=== PATIENT | female | born 1935 | race Hispanic/Latino ===

== ENCOUNTER 2018-11-07 19:10 | Inpatient (IN) | payer MEDICARE ==
[2018-11-07] MEDS ORDERED: GLUCAGEN ONE (19:15)
[2018-11-07] MEDS ORDERED: D50W (25GM) Syringe IV ONE ×2 (19:16→19:22)
[2018-11-07] MEDS ORDERED: NORMODYNE IV ONE (19:23)
--- NOTE | 2018-11-07 19:28 | Emergency Department Report ---
ED Altered Mental Status HPI - General Stated Complaint: LOW BLOODSUGAR Time Seen by Provider: 11/07/18 19:22 Source: EMS - History of Present Illness Initial Comments: Patient is a 83 years old female with history of diabetes. Patient brought to the emergency room via EMS after patient was found unresponsive on her wheelchair. EMS stated that her blood sugar was less than 20. EMS unable to get IV access. When arrived to the emergency room patient is obtunded, gasping for breath. IV access immediately obtained and patient given head to both D50. Patient started waking up. Airway intact. Patient blood pressure extremely high 280/180. Repeated blood pressure went down to 170/148. Patient received labetalol. MD Complaint: altered mental status, decreased responsiveness -: This afternoon Severity: severe - Related Data Previous Rx's Medication Instructions Recorded Last Taken Type Morphine ER [Ms Contin ER] 15 mg PO Q8HR PRN #20 tablet 03/05/15 Unknown Rx Allergies Allergy/AdvReac Type Severity Reaction Status Date / Time codeine Allergy Unknown Verified 03/05/15 19:35 ED Review of Systems ROS: Stated complaint: LOW BLOODSUGAR Other details as noted in HPI Comment: Unobtainable due to pts medical conditions ED Past Medical Hx - Past Medical History Hx Diabetes: Yes Additional medical history: A-fib - Surgical History Additional Surgical History: L.Knee replacement - Social History Smoking Status: Never Smoker Substance Use Type: None - Medications Home Medications: Home Medications Medication Instructions Recorded Confirmed Last Taken Type Morphine ER [Ms Contin ER] 15 mg PO Q8HR PRN #20 tablet 03/05/15 Unknown Rx ED Physical Exam - General Limitations: Altered Mental Status General appearance: obtunded - Head Head exam: Present: atraumatic, normocephalic, normal inspection - Eye Eye exam: Present: normal appearance - ENT ENT exam: Present: normal exam, normal orophraynx, mucous membranes moist - Neck Neck exam: Present: normal inspection, full ROM. Absent: tenderness, meningismus, lymphadenopathy, thyromegaly - Respiratory Respiratory exam: Present: normal lung sounds bilaterally. Absent: respiratory distress, wheezes, rales, rhonchi, stridor, chest wall tenderness, accessory muscle use, decreased breath sounds, prolonged expiratory - Cardiovascular Cardiovascular Exam: Present: regular rate, normal rhythm, normal heart sounds - GI/Abdominal GI/Abdominal exam: Present: soft, normal bowel sounds. Absent: distended, tenderness, guarding, rebound, rigid, organomegaly, mass, bruit, pulsatile mass, hernia - Extremities Exam Extremities exam: Present: normal inspection, full ROM, normal capillary refill. Absent: pedal edema, calf tenderness - Back Exam Back exam: Present: normal inspection, full ROM. Absent: tenderness, CVA tenderness (R), CVA tenderness (L), muscle spasm, paraspinal tenderness, vertebral tenderness - Neurological Exam Neurological exam: Present: alert, oriented X3, CN II-XII intact, normal gait, reflexes normal - Skin Skin exam: Present: warm, intact, normal color ED Course Vital Signs 11/07/18 11/07/18 11/07/18 19:12 19:16 19:27 Temperature 93.1 F L Pulse Rate 83 89 90 Respiratory 17 16 Rate Blood Pressure 145/129 163/59 Blood Pressure [Right] O2 Sat by Pulse 87 87 Oximetry 11/07/18 11/07/18 11/07/18 19:30 19:33 19:40 Temperature 93.1 F L Pulse Rate 83 88 Respiratory 17 14 16 Rate Blood Pressure 189/111 Blood Pressure 182/111 [Right] O2 Sat by Pulse 98 Oximetry 11/07/18 11/07/18 11/07/18 20:23 20:31 20:32 Temperature Pulse Rate 77 73 82 Respiratory 13 15 Rate Blood Pressure 182/119 189/94 182/111 Blood Pressure [Right] O2 Sat by Pulse 90 Oximetry - Reevaluation(s) Reevaluation #1: 11/07/18 19:39 Family arrived. Daughter stated that her mom fell this afternoon landed on the coffee table on the left side and she's been hurting since then. Patient does have some bruises in the lower anterior abdomen. Reevaluation #2: 11/07/18 22:46 Patient evaluated by me multiple times. Patient stated that she is feeling better after the fentanyl. - Lab Data Result diagrams: 11/07/18 19:40 11/07/18 19:40 Lab Results 11/07/18 11/07/18 11/07/18 Range/Units 19:30 19:30 19:40 WBC 14.1 H (4.5-11.0) K/mm3 RBC 5.05 H (3.65-5.03) M/mm3 Hgb 10.4 (10.1-14.3) gm/dl Hct 34.2 (30.3-42.9) % MCV 68 L (79-97) fl MCH 21 L (28-32) pg MCHC 31 (30-34) % RDW 18.1 H (13.2-15.2) % Plt Count 541 H (140-440) K/mm3 Add Manual Diff Complete Total Counted 100 Seg Neutrophils % Director Call Seg Neuts % (Manual) 90.0 H (40.0-70.0) % Band Neutrophils % 0 % Lymphocytes % (Manual) 6.0 L (13.4-35.0) % Reactive Lymphs % (Man) 0 % Monocytes % (Manual) 4.0 (0.0-7.3) % Eosinophils % (Manual) 0 (0.0-4.3) % Basophils % (Manual) 0 (0.0-1.8) % Metamyelocytes % 0 % Myelocytes % 0 % Promyelocytes % 0 % Blast Cells % 0 % Nucleated RBC % Not Reportable Seg Neutrophils # Man 12.7 H (1.8-7.7) K/mm3 Band Neutrophils # 0.0 K/mm3 Lymphocytes # (Manual) 0.8 L (1.2-5.4) K/mm3 Abs React Lymphs (Man) 0.0 K/mm3 Monocytes # (Manual) 0.6 (0.0-0.8) K/mm3 Eosinophils # (Manual) 0.0 (0.0-0.4) K/mm3 Basophils # (Manual) 0.0 (0.0-0.1) K/mm3 Metamyelocytes # 0.0 K/mm3 Myelocytes # 0.0 K/mm3 Promyelocytes # 0.0 K/mm3 Blast Cells # 0.0 K/mm3 WBC Morphology Not Reportable Hypersegmented Neuts Not Reportable Hyposegmented Neuts Not Reportable Hypogranular Neuts Not Reportable Smudge Cells Not Reportable Toxic Granulation Not Reportable Toxic Vacuolation Not Reportable Dohle Bodies Not Reportable Pelger-Huet Anomaly Not Reportable Geoff Rods Not Reportable Platelet Estimate Consistent w auto Clumped Platelets Not Reportable Plt Clumps, EDTA Not Reportable Large Platelets Not Reportable Giant Platelets Not Reportable Platelet Satelliting Not Reportable Plt Morphology Comment Not Reportable RBC Morphology Not Reportable Dimorphic RBCs Not Reportable Polychromasia Not Reportable Hypochromasia Not Reportable Poikilocytosis Not Reportable Anisocytosis Not Reportable Microcytosis 1+ Macrocytosis Not Reportable Spherocytes Not Reportable Pappenheimer Bodies Not Reportable Sickle Cells Not Reportable Target Cells Few Tear Drop Cells Not Reportable Ovalocytes Not Reportable Helmet Cells Not Reportable [place] Bodies Not Reportable [place] Rings Not Reportable [place] Cells Not Reportable Bite Cells Not Reportable Crenated Cell Not Reportable Elliptocytes 1+ Acanthocytes (Spur) Not Reportable Rouleaux Not Reportable Hemoglobin C Crystals Not Reportable Schistocytes Not Reportable Malaria parasites Not Reportable Teofilo Bodies Not Reportable Hem Pathologist Commnt No PT (12.2-14.9) Sec. INR (0.87-1.13) APTT (24.2-36.6) Sec. Sodium (137-145) mmol/L Potassium (3.6-5.0) mmol/L Chloride (98-107) mmol/L Carbon Dioxide (22-30) mmol/L Anion Gap mmol/L BUN (7-17) mg/dL Creatinine (0.7-1.2) mg/dL Estimated GFR ml/min BUN/Creatinine Ratio % Glucose (65-100) mg/dL POC Glucose (70-105) Lactic Acid 3.30 H* (0.7-2.0) mmol/L Calcium (8.4-10.2) mg/dL Total Bilirubin (0.1-1.2) mg/dL Direct Bilirubin (0-0.2) mg/dL Indirect Bilirubin mg/dL AST (5-40) units/L ALT (7-56) units/L Alkaline Phosphatase (35-129) units/L Ammonia 32.0 (25-60) umol/L Troponin T (0.00-0.029) ng/mL Total Protein (6.3-8.2) g/dL Albumin (3.9-5) g/dL Albumin/Globulin Ratio % Urine Color (Yellow) Urine Turbidity (Clear) Urine pH (5.0-7.0) Ur Specific [place] (1.003-1.030) Urine Protein (Negative) mg/dL Urine Glucose (UA) (Negative) mg/dL Urine Ketones (Negative) mg/dL Urine Blood (Negative) Urine Nitrite (Negative) Urine Bilirubin (Negative) Urine Urobilinogen (<2.0) mg/dL Ur Leukocyte Esterase (Negative) Urine WBC (Auto) (0.0-6.0) /HPF Urine RBC (Auto) (0.0-6.0) /HPF 11/07/18 11/07/18 11/07/18 Range/Units 19:40 19:40 20:22 WBC (4.5-11.0) K/mm3 RBC (3.65-5.03) M/mm3 Hgb (10.1-14.3) gm/dl Hct (30.3-42.9) % MCV (79-97) fl MCH (28-32) pg MCHC (30-34) % RDW (13.2-15.2) % Plt Count (140-440) K/mm3 Add Manual Diff Total Counted Seg Neutrophils % Seg Neuts % (Manual) (40.0-70.0) % Band Neutrophils % % Lymphocytes % (Manual) (13.4-35.0) % Reactive Lymphs % (Man) % Monocytes % (Manual) (0.0-7.3) % Eosinophils % (Manual) (0.0-4.3) % Basophils % (Manual) (0.0-1.8) % Metamyelocytes % % Myelocytes % % Promyelocytes % % Blast Cells % % Nucleated RBC % Seg Neutrophils # Man (1.8-7.7) K/mm3 Band Neutrophils # K/mm3 Lymphocytes # (Manual) (1.2-5.4) K/mm3 Abs React Lymphs (Man) K/mm3 Monocytes # (Manual) (0.0-0.8) K/mm3 Eosinophils # (Manual) (0.0-0.4) K/mm3 Basophils # (Manual) (0.0-0.1) K/mm3 Metamyelocytes # K/mm3 Myelocytes # K/mm3 Promyelocytes # K/mm3 Blast Cells # K/mm3 WBC Morphology Hypersegmented Neuts Hyposegmented Neuts Hypogranular Neuts Smudge Cells Toxic Granulation Toxic Vacuolation Dohle Bodies Pelger-Huet Anomaly Geoff Rods Platelet Estimate Clumped Platelets Plt Clumps, EDTA Large Platelets Giant Platelets Platelet Satelliting Plt Morphology Comment RBC Morphology Dimorphic RBCs Polychromasia Hypochromasia Poikilocytosis Anisocytosis Microcytosis Macrocytosis Spherocytes Pappenheimer Bodies Sickle Cells Target Cells Tear Drop Cells Ovalocytes Helmet Cells [place] Bodies [place] Rings [place] Cells Bite Cells Crenated Cell Elliptocytes Acanthocytes (Spur) Rouleaux Hemoglobin C Crystals Schistocytes Malaria parasites Teofilo Bodies Hem Pathologist Commnt PT 14.8 (12.2-14.9) Sec. INR 1.12 (0.87-1.13) APTT 44.8 H (24.2-36.6) Sec. Sodium 125 L (137-145) mmol/L Potassium 3.6 (3.6-5.0) mmol/L Chloride 83.7 L (98-107) mmol/L Carbon Dioxide 26 (22-30) mmol/L Anion Gap 19 mmol/L BUN 10 (7-17) mg/dL Creatinine 0.5 L (0.7-1.2) mg/dL Estimated GFR > 60 ml/min BUN/Creatinine Ratio 20 % Glucose 269 H (65-100) mg/dL POC Glucose 152 H (70-105) Lactic Acid (0.7-2.0) mmol/L Calcium 8.4 (8.4-10.2) mg/dL Total Bilirubin 0.30 (0.1-1.2) mg/dL Direct Bilirubin < 0.2 (0-0.2) mg/dL Indirect Bilirubin 0.1 mg/dL AST 28 (5-40) units/L ALT 23 (7-56) units/L Alkaline Phosphatase 135 H (35-129) units/L Ammonia (25-60) umol/L Troponin T < 0.010 (0.00-0.029) ng/mL Total Protein 6.0 L (6.3-8.2) g/dL Albumin 4.0 (3.9-5) g/dL Albumin/Globulin Ratio 2.0 % Urine Color (Yellow) Urine Turbidity (Clear) Urine pH (5.0-7.0) Ur Specific [place] (1.003-1.030) Urine Protein (Negative) mg/dL Urine Glucose (UA) (Negative) mg/dL Urine Ketones (Negative) mg/dL Urine Blood (Negative) Urine Nitrite (Negative) Urine Bilirubin (Negative) Urine Urobilinogen (<2.0) mg/dL Ur Leukocyte Esterase (Negative) Urine WBC (Auto) (0.0-6.0) /HPF Urine RBC (Auto) (0.0-6.0) /HPF 11/07/18 Range/Units 20:30 WBC (4.5-11.0) K/mm3 RBC (3.65-5.03) M/mm3 Hgb (10.1-14.3) gm/dl Hct (30.3-42.9) % MCV (79-97) fl MCH (28-32) pg MCHC (30-34) % RDW (13.2-15.2) % Plt Count (140-440) K/mm3 Add Manual Diff Total Counted Seg Neutrophils % Seg Neuts % (Manual) (40.0-70.0) % Band Neutrophils % % Lymphocytes % (Manual) (13.4-35.0) % Reactive Lymphs % (Man) % Monocytes % (Manual) (0.0-7.3) % Eosinophils % (Manual) (0.0-4.3) % Basophils % (Manual) (0.0-1.8) % Metamyelocytes % % Myelocytes % % Promyelocytes % % Blast Cells % % Nucleated RBC % Seg Neutrophils # Man (1.8-7.7) K/mm3 Band Neutrophils # K/mm3 Lymphocytes # (Manual) (1.2-5.4) K/mm3 Abs React Lymphs (Man) K/mm3 Monocytes # (Manual) (0.0-0.8) K/mm3 Eosinophils # (Manual) (0.0-0.4) K/mm3 Basophils # (Manual) (0.0-0.1) K/mm3 Metamyelocytes # K/mm3 Myelocytes # K/mm3 Promyelocytes # K/mm3 Blast Cells # K/mm3 WBC Morphology Hypersegmented Neuts Hyposegmented Neuts Hypogranular Neuts Smudge Cells Toxic Granulation Toxic Vacuolation Dohle Bodies Pelger-Huet Anomaly Geoff Rods Platelet Estimate Clumped Platelets Plt Clumps, EDTA Large Platelets Giant Platelets Platelet Satelliting Plt Morphology Comment RBC Morphology Dimorphic RBCs Polychromasia Hypochromasia Poikilocytosis Anisocytosis Microcytosis Macrocytosis Spherocytes Pappenheimer Bodies Sickle Cells Target Cells Tear Drop Cells Ovalocytes Helmet Cells [place] Bodies [place] Rings [place] Cells Bite Cells Crenated Cell Elliptocytes Acanthocytes (Spur) Rouleaux Hemoglobin C Crystals Schistocytes Malaria parasites Teofilo Bodies Hem Pathologist Commnt PT (12.2-14.9) Sec. INR (0.87-1.13) APTT (24.2-36.6) Sec. Sodium (137-145) mmol/L Potassium (3.6-5.0) mmol/L Chloride (98-107) mmol/L Carbon Dioxide (22-30) mmol/L Anion Gap mmol/L BUN (7-17) mg/dL Creatinine (0.7-1.2) mg/dL Estimated GFR ml/min BUN/Creatinine Ratio % Glucose (65-100) mg/dL POC Glucose (70-105) Lactic Acid (0.7-2.0) mmol/L Calcium (8.4-10.2) mg/dL Total Bilirubin (0.1-1.2) mg/dL Direct Bilirubin (0-0.2) mg/dL Indirect Bilirubin mg/dL AST (5-40) units/L ALT (7-56) units/L Alkaline Phosphatase (35-129) units/L Ammonia (25-60) umol/L Troponin T (0.00-0.029) ng/mL Total Protein (6.3-8.2) g/dL Albumin (3.9-5) g/dL Albumin/Globulin Ratio % Urine Color Straw (Yellow) Urine Turbidity Clear (Clear) Urine pH 8.0 H (5.0-7.0) Ur Specific [place] 1.006 (1.003-1.030) Urine Protein 100 mg/dl (Negative) mg/dL Urine Glucose (UA) 150 (Negative) mg/dL Urine Ketones Neg (Negative) mg/dL Urine Blood Mod (Negative) Urine Nitrite Neg (Negative) Urine Bilirubin Neg (Negative) Urine Urobilinogen < 2.0 (<2.0) mg/dL Ur Leukocyte Esterase Neg (Negative) Urine WBC (Auto) 1.0 (0.0-6.0) /HPF Urine RBC (Auto) 112.0 (0.0-6.0) /HPF - EKG Data -: EKG Interpreted by Nm EKG shows normal: sinus rhythm Rate: tachycardia Interpretation: no acute changes - Radiology Data Radiology results: report reviewed Referring Physician: SHENA RODRIGUEZ Patient Name: VALARIE DUNHAM Date of : 1935 Sex: Female Report Date: 2018-11-07 Report Status: Finalized Findings [address] [address] Cat Scan Report Signed Patient: VALARIE DUNHAM MR#: [id number] : 1935 Acct:[id number] Age/Sex: 83 / F ADM Date: 11/07/18 Loc: ED Attending Dr: Ordering Physician: SHENA RODRIGUEZ Date of Service: 11/07/18 Procedure(s): CT head/brain wo con Accession Number(s): [id number] cc: SHENA RODRIGUEZ FINAL REPORT EXAM: CT HEAD/BRAIN WO CON HISTORY: Altered Mental Status 83-year-old female Total exam DLP 1049.24 mGy-cm Comparison: None TECHNIQUE: Axial noncontrast CT images the brain were performed FINDINGS: Cortical atrophy. Ex vacuo dilatation lateral ventricles. Normal layne-white differentiation without midline shift or mass effect. No acute extra-axial fluid collection or intraparenchymal blood products. Mild scattered periventricular white matter hypodensities most compatible with small vessel ischemic disease. Conjugate gaze. Supra clinoid carotid calcification. Clear imaged paranasal sinuses. Unremarkable calvarium. IMPRESSION: Cortical and central atrophy. No acute transcortical infarct, bleed, or mass identified. If symptoms persist, consider MRI brain with diffusion-weighted imaging. Transcribed By: MP Dictated By: JOHNNY DIAL Electronically Authenticated By: JOHNNY DIAL Signed Date/Time: 11/07/182050 Referring Physician: SHENA RODRIGUEZ Patient Name: VALARIE DUNHAM Date of : 1935 Sex: Female Report Date: 2018-11-07 Report Status: Finalized Findings [address] [address] XRay Report Signed Patient: VALARIE DUNHAM MR#: [id number] : 1935 Acct:[id number] Age/Sex: 83 / F ADM Date: 11/07/18 Loc: ED Attending Dr: Ordering Physician: SHENA RODRIGUEZ Date of Service: 11/07/18 Procedure(s): XR chest 1V ap Accession Number(s): [id number] cc: SHENA RODRIGUEZ Fluoro Time In Minutes: FINAL REPORT EXAM: XR CHEST 1V AP HISTORY: Altered Mental Status TECHNIQUE: Frontal chest x-ray Comparison: CT same day FINDINGS: Enlarged cardiac silhouette. Bilateral pleural effusions with subjacent consolidation. Atherosclerotic aorta. Patchy bilateral lower lobe infiltrates. Possible cephalization of the vasculat ure. Advanced bilateral glenohumeral joint degenerative arthritis. IMPRESSION: Bilateral lower lobe infiltrates and consolidation. Enlarged cardiac silhouette. Possible cephalization of the vasculature. Consider pneumonia versus congestive heart failure. Transcribed By: MAGO Dictated By: JOHNNY DIAL Electronically Authenticated By: JOHNNY DIAL Signed Date/Time: 11/07/182053 DD/ 54 TD/TT: 11/07/182054 DD/ 53 TD/TT: 11/07/182053 - Medical Decision Making Patient is a 83 years old female with history of diabetes. Patient brought to the emergency room via EMS after patient was found unresponsive on her wheelchair. EMS stated that her blood sugar was less than 20. EMS unable to get IV access. When arrived to the emergency room patient is obtunded, gasping for breath. IV access immediately obtained and patient given head to both D50. Patient started waking up. Airway intact. Patient blood pressure extremely high 280/180. Repeated blood pressure went down to 170/148. Patient received labetalol. Patient found to be hypothermic, hypoglycemic, septic. Patient found to have bilateral lower lobe pneumonia. Multiple rib fracture on the left side and left femoral neck fracture. I discussed the patient is Dr. Alamo he stated that he will follow up with the patient in the morning. I discussed the patient is Dr. Castellano she agreed to admit the patient to medical service. Critical Care Time: Yes Critical care time in (mins) excluding proc time.: 45 Critical care attestation.: If time is entered above; I have spent that time in minutes in the direct care of this critically ill patient, excluding procedure time. ED Disposition Clinical Impression: Sepsis, Hypoglycemia, Hypothermia, Pneumonia, Fall, Ribs, multiple fractures, Fracture of femoral neck, left Disposition: DC-[id number] OP ADMIT IP TO THIS HOSP Is pt being admited?: Yes Condition: Stable Instructions: Bacterial Pneumonia (ED) Referrals: DEMARCUS ESTRADA MD [Primary Care Provider] - 3-5 Days
[2018-11-07] MEDS ORDERED: D10W 1,000 ML IV SCH (20:00)
[2018-11-07 20:01] LABS: Hematocrit 34.2 % (30.3-42.9); Hemoglobin 10.4 gm/dl (10.1-14.3); Mean Corpuscular HGB Conc 31 % (30-34); Platelet Count 541 K/mm3 (140-440); Red Blood Count 5.05 M/mm3 (3.65-5.03); Red Cell Distribution Width 18.1 % (13.2-15.2)
[2018-11-07 20:02] LABS: Mean Corpuscular Volume 68 fl (79-97)
[2018-11-07 20:11] LABS: INR 1.12 (0.87-1.13); Partial Thromboplastin Time 44.8 Sec. (24.2-36.6)
[2018-11-07 20:35] LABS: Basophils % (Manual) 0 % (0.0-1.8); Eosinophils % (Manual) 0 % (0.0-4.3); Total Cells Counted 100
[2018-11-07 20:37] LABS: Platelet Estimate Consistent w Auto; Target Cells Few
--- NOTE | 2018-11-07 20:51 | Cat Scan Report ---
FINAL REPORT EXAM: CT HEAD/BRAIN WO CON HISTORY: Altered Mental Status 83-year-old female Total exam DLP 1049.24 mGy-cm Comparison: None TECHNIQUE: Axial noncontrast CT images the brain were performed FINDINGS: Cortical atrophy. Ex vacuo dilatation lateral ventricles. Normal layne-white differentiation without midline shift or mass effect. No acute extra-axial fluid collection or intraparenchymal blood products. Mild scattered periventricular white matter hypodensities most compatible with small vessel ischemic disease. Conjugate gaze. Supra clinoid carotid calcification. Clear imaged paranasal sinuses. Unremarkable calvarium. IMPRESSION: Cortical and central atrophy. No acute transcortical infarct, bleed, or mass identified. If symptoms persist, consider MRI brain with diffusion-weighted imaging.
--- NOTE | 2018-11-07 20:54 | XRay Report ---
FINAL REPORT EXAM: XR CHEST 1V AP HISTORY: Altered Mental Status TECHNIQUE: Frontal chest x-ray Comparison: CT same day FINDINGS: Enlarged cardiac silhouette. Bilateral pleural effusions with subjacent consolidation. Atherosclerotic aorta. Patchy bilateral lower lobe infiltrates. Possible cephalization of the vasculature. Advanced bilateral glenohumeral joint degenerative arthritis. IMPRESSION: Bilateral lower lobe infiltrates and consolidation. Enlarged cardiac silhouette. Possible cephalizati on of the vasculature. Consider pneumonia versus congestive heart failure.
[2018-11-07 21:11] LABS: Alanine Aminotransferase 23 units/L (7-56); BUN/Creatinine Ratio 20; Blood Urea Nitrogen 10 mg/dL (7-17); Calcium 8.4 mg/dL (8.4-10.2); Hemolysis Index 8
[2018-11-07 21:13] LABS: Bilirubin,Urine NEG (Negative); Blood,Urine MOD (Negative); Color,Urine Straw (Yellow); Urobilinogen,Urine < 2.0 mg/dL (<2.0)
[2018-11-07 21:14] LABS: Bilirubin,Direct < 0.2 mg/dL (0-0.2)
[2018-11-07] MEDS ORDERED: NACL 0.9% 1000 ML IV ONE (21:21)
[2018-11-07] MEDS ORDERED: ZOSYN/NS 3.375GM/50ML 3.375 GM/50 ML BAG IV ONE (21:21)
[2018-11-07] MEDS ORDERED: NACL 0.9% 1000 ML 2,000 ML ONE (21:24)
--- NOTE | 2018-11-07 21:52 | Cat Scan Report ---
FINAL REPORT EXAM: CT CHEST WO CON HISTORY: left chest pain s/p Fall TECHNIQUE: Axial images were performed from the lung apices to the bases without contrast. Multiplan ar reformats are performed on the acquisition scanner. Total exam DLP 490.73 mGy-cm Comparison: Chest x-ray same day FINDINGS: There are moderate bilateral layering pleural effusions, bilateral basal consolidation, patchy bilate ral lower lobe infiltrates, and right middle lobe mild consolidation. Heart size is enlarged. There is mitral annulus calcification. Bilateral lobes of the thyroid are enlarged with multiple nodu les and bilateral calcifications. There is bilateral glenohumeral joint arthritis. Aorta is atherosclerotic. There are multiple small mediastinal lymph nodes and small superior pericardial recess effusion. There is diffuse body wall anasarca. Aorta has normal course and caliber. Right atrial appendage is enlarged. Trace pericardial effusion. Left adrenal hyperplasia versus small left adrenal mass. Fullness of the left renal pelvis incompletely assessed will be reported on the CT abdomen and pelvis . Sagittal reconstructed images demonstrate age indeterminate T11 50 percent anterior wedge fracture. T here is approximately 2 millimeter retropulsion of the posterior inferior corner into the spinal candida l. Exaggerated thoracic kyphosis due to multilevel wedging. No significant scoliosis. Left 3rd through 6 lateral rib fractures. Left posterior 2nd rib fracture. IMPRESSION: Left 3rd through 6 lateral rib fractures. Left posterior 2nd rib fracture. Consider CT with IV contra st for evaluation of aorta if clinically indicated. Aorta has normal morphology without IV contrast. T11 50 percent anterior wedge fracture with approximately 4 millimeter retropulsion of the posterior inferior corner into the anterior thecal sac. Findings are suggestive of congestive heart failure with cardiomegaly, moderate bilateral pleural eff usions, bibasal consolidation and patchy lower lobe infiltrates. Mitral annulus calcification. Small pericardial effusion. 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 Abdomen/pelvis will be reported separately.
--- NOTE | 2018-11-07 21:56 | Cat Scan Report ---
FINAL REPORT EXAM: CT ABDOMEN PELVIS WO CON HISTORY: ABDOMINAL PAIN/ trauma TECHNIQUE: Axial images were performed from the lung bases to the pubic symphysis. Multiplanar refor mats are performed on the acquisition scanner. Comparison: None FINDINGS: Moderate bilateral lower lobe infiltrates with consolidation and layering pleural effusions. Small pe ricardial effusion. Anasarca of the body wall. Motion degraded exam, limited without IV contrast administration. Grossly unremarkable unenhanced liver, spleen, pancreas. Left adrenal hyperplasia versus small apical 1 centimeter adenoma. Mild right adrenal fullness. Moderate bilateral hydronephrosis with questionable posterior caliceal stone measuring approximately 4 millimeters versus motion degradation and streak artifact. Fullness of the bilateral ureters to the extremely distended urinary bladder. No definite bladder or ureteral stone identified. Normally anteverted uterus. Nonobstructive bowel pattern. Atherosclerosis the aorta. Moderate diffuse fecal retention. Right low femoral neck nondisplaced hip fracture may be present Degenerative arthritis of both hips. Left femoral neck bone island. Old healed left inferior pubic ramus/is scale fracture. Old healed right superior pubic ramus fractur e. Lower lumbar facet osteoarthritis and right SI joint arthritis. IMPRESSION: T11 50 percent compression fracture with approximately 4 millimeter retropulsion of the posterior inf erior corner into the anterior thecal sac. Moderate bilateral hydroureteronephrosis appears to be due to urinary retention. Consider bladder sca nning after [place] catheter or voiding. Findings suspicious for nondisplaced right low femoral neck fracture axial series only. Correlate wit h pain and possibly limited MR. There are old pelvic fractures on the right which are healed. Motion degraded exam. Possible left adrenal adenoma or hyperplasia. Possible posterior right renal caliceal stone versus motion artifact. No definite free air or free fluid.
[2018-11-07] MEDS ORDERED: SODIUM CHLORIDE FLUSH SYRINGE 10 ML IV PRN (23:00)
[2018-11-07] MEDS ORDERED: ZOFRAN IV PRN (23:00)
[2018-11-07] MEDS ORDERED: D5/0.45NS 1,000 ML IV SCH (23:00)
[2018-11-07] MEDS ORDERED: APRESOLINE IV PRN (23:06)
--- NOTE | 2018-11-07 23:13 | History and Physical Report ---
History of Present Illness Date of examination: 11/07/18 History of present illness: 83 -year-old white male with a history of hypertension, diabetes, A. fib comes emergency room because she was found to be confused. Her fingerstick was less than 20, she was given D50 in the emergency room to which she responded. Antwanjames hter at bedside state that she sustained a fall today at home and landed on her left side. She is had a cough, she saw her primary care physician on Wednesday, she received a steroid shot and started taking clarithromycin on Wednesday Review of systems Constitutional: no weight loss, chills, fever Ears, eyes, nose, mouth and throat: no nasal congestion, no nasal discharge, no sinus pressure, no vision change, no red eye. Neck: No neck pain or rigidity. Cardiovascular: no palpitations, chest pain Respiratory:+ shortness of breath Gastrointestinal: no hematochezia, abdominal pain Genitourinary : no frequency , no hematuria Musculoskeletal: no joint swelling or muscle ache Integumentary: no rash, no pruritis Neurological: no parathesias, no focal weakness Endocrine: no cold or heat intolerance, no polyuria or polydipsia Hematologic/Lymphatic: no easy bruising, no easy bleeding, no gland swelling Allergic/Immunologic: no urticaria, no angioedema. PAST MEDICAL HISTORY: hypertension, diabetes, A. fib PAST SURGICAL HISTORY: Left knee SOCIAL HISTORY: Denies alcohol, drugs, tobacco FAMILY HISTORY: Hypertension Medications and Allergies Allergies Allergy/AdvReac Type Severity Reaction Status Date / Time codeine Allergy Unknown Verified 03/05/15 19:35 Home Medications Medication Instructions Recorded Confirmed Last Taken Type Atorvastatin Calcium 40 mg PO DAILY 11/07/18 11/07/18 Unknown History Clarithromycin 125 mg PO BID 11/07/18 11/07/18 Unknown History Ergocalciferol (Vitamin D2) 1.25 mg PO 1XW 11/07/18 11/07/18 Unknown History [Ergocal] Levemir (Nf) 40 1000units SQ DAILY 11/07/18 11/07/18 Unknown History Liraglutide [Victoza 2-Angel] 1.8 unit SQ DAILY 11/07/18 11/07/18 Unknown History Magnesium Oxide [Magnesium] 400 mg PO BID 11/07/18 11/07/18 Unknown History Metoprolol [Lopressor TAB] 50 mg PO DAILY 11/07/18 11/07/18 Unknown History Omeprazole 20 mg PO DAILY 11/07/18 11/07/18 Unknown History Pradaxa 75 mg PO DAILY 11/07/18 11/07/18 Unknown History hydroCHLOROthiazide 12.5 mg PO DAILY 11/07/18 11/07/18 Unknown History [Hydrochlorothiazide] metFORMIN [Glucophage] 1,000 mg PO BID 11/07/18 11/07/18 Unknown History Active Meds: Active Medications Acetaminophen (Tylenol) 650 mg PO Q4H PRN PRN Reason: Pain MILD(1-3)/Fever >100.5/THOMSON Dextrose (D50w (25gm) Syringe) 50 ml IV PRN PRN PRN Reason: Hypoglycemia Enoxaparin Sodium (Lovenox) 30 mg SUB-Q QDAY EVONNE Hydralazine HCl (Apresoline) 5 mg IV Q6H PRN PRN Reason: Hypertension Dextrose/Sodium Chloride (D5/0.45ns) 1,000 mls @ 75 mls/hr IV DIRECT EVONNE Azithromycin 500 mg/ Sodium (Chloride) 250 mls @ 250 mls/hr IV Q24HR EVONNE Ceftriaxone Sodium (Rocephin/Ns 1 Gm/50 Ml) 1 gm in 50 mls @ 100 mls/hr IV Q24HR EVONNE; Protocol Ondansetron HCl (Zofran) 4 mg IV Q8H PRN PRN Reason: Nausea And Vomiting Sodium Chloride (Sodium Chloride Flush Syringe 10 Ml) 10 ml IV BID EVONNE Sodium Chloride (Sodium Chloride Flush Syringe 10 Ml) 10 ml IV PRN PRN PRN Reason: LINE FLUSH Exam - Physical Exam Narrative exam: General Apperance: The patient lying in bed, breathing comfortable HEENT: Normocephalic, atraumatic. Pupils equally round and reactive to light, EOMI, no sclericterus or JVD or thyromegaly or nodule. , no carotid bruit, mucous membranes moist, no exudate or erythema Heart: S1-S2, regular is rhythm Lungs: Clear to auscultation bilaterally, breathing comfortable Abdomen: Positive bowel sounds, soft, small bruises on the upper abdomen nontender, nondistended, no organomegaly Extremities: No edema cyanosis clubbing Skin: no rash, nodule, warm and dry Neuro: cranial nerves 2-12 intact, speech is fluent, motor/sensory intact - Constitutional Vitals: Temp Pulse Resp BP Pulse Ox 93.1 F L 82 15 182/111 90 11/07/18 19:40 11/07/18 20:32 11/07/18 20:31 11/07/18 20:32 11/07/18 20:31 Results - Labs CBC & Chem 7: 11/07/18 19:40 11/08/18 00:41 Labs: Abnormal lab results 11/07/18 11/07/18 11/07/18 Range/Units 19:30 19:40 19:40 WBC 14.1 H (4.5-11.0) K/mm3 RBC 5.05 H (3.65-5.03) M/mm3 MCV 68 L (79-97) fl MCH 21 L (28-32) pg RDW 18.1 H (13.2-15.2) % Plt Count 541 H (140-440) K/mm3 Seg Neuts % (Manual) 90.0 H (40.0-70.0) % Lymphocytes % (Manual) 6.0 L (13.4-35.0) % Seg Neutrophils # Man 12.7 H (1.8-7.7) K/mm3 Lymphocytes # (Manual) 0.8 L (1.2-5.4) K/mm3 APTT 44.8 H (24.2-36.6) Sec. Sodium (137-145) mmol/L Chloride (98-107) mmol/L Creatinine (0.7-1.2) mg/dL Glucose (65-100) mg/dL POC Glucose (70-105) Lactic Acid 3.30 H* (0.7-2.0) mmol/L Alkaline Phosphatase (35-129) units/L Total Protein (6.3-8.2) g/dL Urine pH (5.0-7.0) 11/07/18 11/07/18 11/07/18 Range/Units 19:40 20:22 20:30 WBC (4.5-11.0) K/mm3 RBC (3.65-5.03) M/mm3 MCV (79-97) fl MCH (28-32) pg RDW (13.2-15.2) % Plt Count (140-440) K/mm3 Seg Neuts % (Manual) (40.0-70.0) % Lymphocytes % (Manual) (13.4-35.0) % Seg Neutrophils # Man (1.8-7.7) K/mm3 Lymphocytes # (Manual) (1.2-5.4) K/mm3 APTT (24.2-36.6) Sec. Sodium 125 L (137-145) mmol/L Chloride 83.7 L (98-107) mmol/L Creatinine 0.5 L (0.7-1.2) mg/dL Glucose 269 H (65-100) mg/dL POC Glucose 152 H (70-105) Lactic Acid (0.7-2.0) mmol/L Alkaline Phosphatase 135 H (35-129) units/L Total Protein 6.0 L (6.3-8.2) g/dL Urine pH 8.0 H (5.0-7.0) - Imaging and Cardiology Chest x-ray: report reviewed CT scan - abdomen: report reviewed CT scan - chest: report reviewed CT Scan - head: report reviewed CT scan - pelvis: report reviewed Assessment and Plan Assessment Sepsis Community-acquired pneumonia Hypoglycemia Hip, multiple rib, T11 fracture, acute Bilateral hydronephrosis CHF: Acute, likely diastolic Hypertension Diabetes type 2 A. fib Plan Admit to medicine Hold fluid for now,given CHF start Rocephin, azithromycin, status post Zosyn Give a dose of vancomycin Follow blood cultures Urology and orthopedic was consulted for the patient Check cardiac enzymes, echo, consult cardiology The D10 was discontinued, the patient's sugar dropped, will start D5 Check fingersticks, hold insulin sliding-scale DVT prophylaxis/pradaxa
[2018-11-08] MEDS: D50W (25GM) Syringe IV PRN ×3 (00:47→07:44)
[2018-11-08] MEDS ORDERED: VANCOMYCIN/NS 1 GM/250 ML 1 GM/250 ML BAG IV ONE (01:18)
[2018-11-08 01:49] LABS: Creatine Kinase MB 6.8 ng/mL (0.0-4.0)
[2018-11-08] MEDS ORDERED: D5/0.45NS 1,000 ML IV SCH (02:00)
[2018-11-08] MEDS ORDERED: VANCOMYCIN 1,250 MG in NACL 0.9% 250ML 250 ML IV ONE (02:00)
[2018-11-08] MEDS ORDERED: D10W 1,000 ML IV SCH (07:00)
[2018-11-08 07:49] LABS: Creatine Kinase MB 7.3 ng/mL (0.0-4.0)
[2018-11-08 07:55] LABS: BUN/Creatinine Ratio 18; Blood Urea Nitrogen 9 mg/dL (7-17); Calcium 8.3 mg/dL (8.4-10.2); Hemolysis Index 30
[2018-11-08 08:36] LABS: Basophils % (Auto) 0.2 % (0.0-1.8); Eosinophils % (Auto) 0.1 % (0.0-4.3); Hemoglobin 9.8 gm/dl (10.1-14.3); Lymphocytes % (Auto) 8.5 % (13.4-35.0); Mean Corpuscular HGB Conc 31 % (30-34); Mean Corpuscular Volume 66 fl (79-97); Monocytes # (Auto) 1.3 K/mm3 (0.0-0.8); Monocytes % (Auto) 10.7 % (0.0-7.3); Platelet Count 513 K/mm3 (140-440); Red Blood Count 4.82 M/mm3 (3.65-5.03); Red Cell Distribution Width 18.3 % (13.2-15.2)
[2018-11-08] MEDS ORDERED: LOVENOX SUB-Q SCH ×2 (10:00)
[2018-11-08] MEDS ORDERED: PRADAXA 75 MG PO SCH (10:00)
--- NOTE | 2018-11-08 10:45 | Consultation ---
History of Present Illness Consult date: 11/08/18 Requesting physician: PAZ CALLOWAY Consult reason: congestive heart failure History of present illness: The pt is an 83 YO female with a past medical history of chronic atrial fibrillation, anticoagulaed with pradaxa, HTN, HLP, DM, severe TR, anxiety. She is followed in our office by Dr. Gates. She was brought to the emergency room via EMS after she was noted to be lethargic at home and fell in her bathroom. Her found her in the bathroom on the floor after the fall, pt's daughter does not believe that the pt lost consciousness during the fall. Per EMS, pt was found unresponsive in her wheelchair. EMS stated that her blood sugar was less than 20. When pt arrived to the ED, she was noted to obtunded and gasping for breath with hypothermia. IV access immediately obtained and patient given D50 began regaining consciousness. Initial BPs were elevated. Pt's daughter reports that pt recently diagnosed with PNA and she was taking antibiotics and steroids. Otherwise, pt has been eating and drinking normally and taking her insulin as prescribed. Pt sustained rib fractures during the fall. Pt denies any cardiac complaints, including chest pain, palpitations, n/v, diaphoresis, dizziness. Echo done 10/27/2018 showed EF 35-40%, basal septal and apical septal wall hypokinetic, grade 3 diastolic dysfunction, LA enlarged, RA severely enlarged, severe TR, pulm HTN with RVSP 84.7mmHg, mild pericardial effusion, left pleural effusion. Echo done 11/2015 showed EF 55-60%, mild MR, mod to severe TR, RVSP 27mmHg. Past History Past Medical History: atrial fib, diabetes, hypertension, hyperlipidemia Medications and Allergies Allergies Allergy/AdvReac Type Severity Reaction Status Date / Time codeine Allergy Unknown Verified 03/05/15 19:35 Home Medications Medication Instructions Recorded Confirmed Last Taken Type Atorvastatin Calcium 40 mg PO DAILY 11/07/18 11/07/18 Unknown History Clarithromycin 125 mg PO BID 11/07/18 11/07/18 Unknown History Ergocalciferol (Vitamin D2) 1.25 mg PO 1XW 11/07/18 11/07/18 Unknown History [Ergocal] Levemir (Nf) 40 1000units SQ DAILY 11/07/18 11/07/18 Unknown History Liraglutide [Victoza 2-Angel] 1.8 unit SQ DAILY 11/07/18 11/07/18 Unknown History Magnesium Oxide [Magnesium] 400 mg PO BID 11/07/18 11/07/18 Unknown History Metoprolol [Lopressor TAB] 50 mg PO DAILY 11/07/18 11/07/18 Unknown History Omeprazole 20 mg PO DAILY 11/07/18 11/07/18 Unknown History Pradaxa 75 mg PO DAILY 11/07/18 11/07/18 Unknown History hydroCHLOROthiazide 12.5 mg PO DAILY 11/07/18 11/07/18 Unknown History [Hydrochlorothiazide] metFORMIN [Glucophage] 1,000 mg PO BID 11/07/18 11/07/18 Unknown History Active Meds: Active Medications Acetaminophen (Tylenol) 650 mg PO Q4H PRN PRN Reason: Pain MILD(1-3)/Fever >100.5/THOMSON Atorvastatin Calcium (Lipitor) 40 mg PO DAILY [facility] Dextrose (D50w (25gm) Syringe) 50 ml IV PRN PRN PRN Reason: Hypoglycemia Last Admin: 11/08/18 07:44 Dose: 50 ml Documented by: Hydralazine HCl (Apresoline) 5 mg IV Q6H PRN PRN Reason: Hypertension Azithromycin 500 mg/ Sodium (Chloride) 250 mls @ 250 mls/hr IV Q24HR EVONNE Ceftriaxone Sodium (Rocephin/Ns 1 Gm/50 Ml) 1 gm in 50 mls @ 100 mls/hr IV Q24HR EVONNE; Protocol Dextrose/Sodium Chloride (D5/0.45ns) 1,000 mls @ 50 mls/hr IV DIRECT EVONNE Last Admin: 11/08/18 01:45 Dose: 50 mls/hr Documented by: Dextrose (D10w) 1,000 mls @ 75 mls/hr IV DIRECT EVONNE Last Admin: 11/08/18 07:05 Dose: 75 mls/hr Documented by: Miscellaneous Medication (Pradaxa) 75 mg PO DAILY EVONNE Ondansetron HCl (Zofran) 4 mg IV Q8H PRN PRN Reason: Nausea And Vomiting Sodium Chloride (Sodium Chloride Flush Syringe 10 Ml) 10 ml IV BID [facility] Sodium Chloride (Sodium Chloride Flush Syringe 10 Ml) 10 ml IV PRN PRN PRN Reason: LINE FLUSH Review of Systems Constitutional: no weight loss, no weight gain, no fever, no chills, no sweats Ears, nose, mouth and throat: no ear pain, no nose pain, no sinus pressure, no sinus pain Cardiovascular: high blood pressure, no chest pain, no orthopnea, no palpitations, no rapid/irregular heart beat, no edema, no shortness of breath, no dyspnea on exertion, no leg edema Respiratory: no cough, no shortness of breath, no dyspnea on exertion, no congestion, no wheezing, no pain on inspiration Gastrointestinal: no abdominal pain, no nausea, no vomiting, no diarrhea, no constipation Genitourinary Female: no pelvic pain, no flank pain, no dysuria, no urinary frequency, no urgency Musculoskeletal: no neck stiffness, no neck pain, no shooting arm pain, no arm numbness/tingling, no low back pain, no shooting leg pain, no leg numbness/tingling Integumentary: no rash, no pruritis Neurological: no head injury, no paralysis, no weakness, no parathesias, no numbness, no tingling, no seizures Psychiatric: anxiety Endocrine: low blood sugars, no cold intolerance, no heat intolerance Allergic/Immunologic: no urticaria, no wheezing Physical Examination Vital Signs Pulse Resp 83 17 11/07/18 19:12 11/07/18 19:12 General appearance: no acute distress HEENT: Positive: PERRL, Normocephaly, Mucus Membranes Moist Neck: Positive: neck supple, trachea midline Cardiac: Positive: irregularly irregular, S1/S2, Systolic Murmur Lungs: Positive: Decreased Breath Sounds Neuro: Positive: Grossly Intact Abdomen: Positive: Soft. Negative: Tender Skin: Negative: Rash Musculoskeletal: No Pain Extremities: Absent: edema Results 11/08/18 07:48 11/08/18 06:40 Cardiac Enzymes 11/07/18 11/08/18 11/08/18 Range/Units 19:40 00:41 06:40 AST 28 (5-40) units/L CK-MB (CK-2) 6.8 H 7.3 H (0.0-4.0) ng/mL Coagulation 11/07/18 Range/Units 19:40 PT 14.8 (12.2-14.9) Sec. INR 1.12 (0.87-1.13) APTT 44.8 H (24.2-36.6) Sec. CBC 11/07/18 11/08/18 Range/Units 19:40 07:48 WBC 14.1 H 12.3 H (4.5-11.0) K/mm3 RBC 5.05 H 4.82 (3.65-5.03) M/mm3 Hgb 10.4 9.8 L (10.1-14.3) gm/dl Hct 34.2 32.0 (30.3-42.9) % Plt Count 541 H 513 H (140-440) K/mm3 Lymph # 1.0 L (1.2-5.4) K/mm3 [place] # 1.3 H (0.0-0.8) K/mm3 Eos # 0.0 (0.0-0.4) K/mm3 Baso # 0.0 (0.0-0.1) K/mm3 Comprehensive Metabolic Panel 11/07/18 11/08/18 11/08/18 Range/Units 19:40 00:41 06:40 Sodium 125 L 133 L D (137-145) mmol/L Potassium 3.6 3.6 (3.6-5.0) mmol/L Chloride 83.7 L 92.2 L (98-107) mmol/L Carbon Dioxide 26 23 (22-30) mmol/L BUN 10 9 (7-17) mg/dL Creatinine 0.5 L 0.5 L (0.7-1.2) mg/dL Glucose 269 H 22 L* 37 L* (65-100) mg/dL Calcium 8.4 8.3 L (8.4-10.2) mg/dL Direct Bilirubin < 0.2 (0-0.2) mg/dL Indirect Bilirubin 0.1 mg/dL AST 28 (5-40) units/L ALT 23 (7-56) units/L Alkaline Phosphatase 135 H (35-129) units/L Total Protein 6.0 L (6.3-8.2) g/dL Albumin 4.0 (3.9-5) g/dL - Imaging and Cardiology Echo: report reviewed (10/27/2018 showed EF 35-40%, basal septal and apical septal wall hypokinetic, grade 3 diastolic dysfunction, LA enlarged, RA severely enlarged, severe TR, pulm HTN with RVSP 84.7mmHg, mild pericardial effusion, left pleural effusion. ) EKG: report reviewed, image reviewed EKG interpretations - Telemetry EKG Rhythm: Atrial Fibrillation - EKG Supraventricular dysrhythmia: atrial fibrillation Assessment and Plan Currently stable cardiac status. Pt has no current cardiac complaints. Pt underwent echo in our office on 10/27/2018 which showed new reduction in LV function with EF 35-40%. No current clinical evidence of acute heart failure. Can consider ischemic evaluation (lexiscan MPI stress test) to r/o ischemic CMP as OP. Resume home Toprol XL and initiate lisinopril in setting of new CMP. Pradaxa resumed per primary - cont if okay per ortho. The patient has been seen in conjunction with Dr. SILVESTRE Hammonds who agrees with the assessment and plan of care. - Patient Problems (1) Hypoglycemia Current Visit: Yes Status: Acute (2) Hypothermia Current Visit: Yes Status: Acute (3) Fall Current Visit: Yes Status: Acute (4) Ribs, multiple fractures Current Visit: Yes Status: Acute (5) Pneumonia Current Visit: Yes Status: Acute (6) Chronic atrial fibrillation Current Visit: Yes Status: Chronic (7) Cardiomyopathy Current Visit: Yes Status: Chronic (8) Severe tricuspid regurgitation Current Visit: Yes Status: Chronic (9) Pulmonary HTN Current Visit: Yes Status: Chronic (10) HTN (hypertension) Current Visit: Yes Status: Chronic (11) Hyperlipidemia Current Visit: Yes Status: Chronic (12) Diabetes Current Visit: Yes Status: Chronic
--- NOTE | 2018-11-08 10:52 | Progress Note ---
Assessment and Plan Assessment and plan: 83 -year-old white male with a history of hypertension, diabetes, A. fib comes emergency room because she was found to be confused. Her fingerstick was less than 20, she was given D50 in the emergency room to which she responded. Daughter at bedside state that she sustained a fall today at home and landed on her left side. She is had a cough, she saw her primary care physician on Wednesday, she received a steroid shot and started taking clarithromycin on Wednesday. Sepsis Community-acquired pneumonia Hip, multiple rib, T11 fracture, acute Bilateral hydronephrosis CHF: Acute, likely diastolic Hypertension Diabetes type 2, -Hypoglycemia A. fib Plan Supportive care Hold fluid for now, given CHF Physical therapy, POSSIBLE BRACE Continue Rocephin, azithromycin, status post Zosyn xray hip shows wedge fracture Urology and orthopedic was consulted for the patient Check cardiac enzymes, echo, consult cardiology The D10 was discontinued, the patient's sugar dropped, will start D5 Check fingersticks, hold insulin sliding-scale DVT prophylaxis/pradaxa Plan discussed with family. History Interval history: Patient seen and examined, family at bedside. she reports left chest wall pain. No shortness of breath but lethargic. Hospitalist Physical - Physical exam Narrative exam: VITAL SIGNS: Reviewed. GENERAL: The patient appeared chronically ill appearing. Vital signs as documented. HEAD: No signs of head trauma. EYES: Pupils are equal. Extraocular motions intact. EARS: Hearing grossly intact. MOUTH: Oropharynx is normal. NECK: No adenopathy, no JVD. CHEST: Chest with diminshed breath sounds bilaterally. No wheezes, rales, or rhonchi. Tender left chest wall CARDIAC: Regular rate and rhythm. S1 and S2, without murmurs, gallops, or rubs. VASCULAR: No Edema. Peripheral pulses normal and equal in all extremities. ABDOMEN: Soft, without detectable tenderness. No sign of distention. No rebound or guarding, and no masses palpated. Bowel Sounds normal. MUSCULOSKELETAL: Good range of motion of all major joints. Extremities without clubbing, cyanosis or edema. NEUROLOGIC EXAM: Alert and oriented x 3. No focal sensory or strength deficits. Speech normal. Follows commands. PSYCHIATRIC: Mood normal. SKIN: redness in the left upper ext - Constitutional Vitals: Temp Pulse Resp BP Pulse Ox 97.8 F 77 18 139/90 94 01/22/19 07:32 11/08/18 07:32 11/08/18 07:32 11/08/18 07:32 11/08/18 07:32 Results - Labs CBC & Chem 7: 11/08/18 07:48 11/08/18 06:40 Labs: Laboratory Last Values WBC 12.3 K/mm3 (4.5-11.0) H 11/08/18 07:48 RBC 4.82 M/mm3 (3.65-5.03) 11/08/18 07:48 Hgb 9.8 gm/dl (10.1-14.3) L 11/08/18 07:48 Hct 32.0 % (30.3-42.9) 11/08/18 07:48 MCV 66 fl (79-97) L 11/08/18 07:48 MCH 20 pg (28-32) L 11/08/18 07:48 MCHC 31 % (30-34) 11/08/18 07:48 RDW 18.3 % (13.2-15.2) H 11/08/18 07:48 Plt Count 513 K/mm3 (140-440) H 11/08/18 07:48 Lymph % (Auto) 8.5 % (13.4-35.0) L 11/08/18 07:48 [place] % (Auto) 10.7 % (0.0-7.3) H 11/08/18 07:48 Eos % (Auto) 0.1 % (0.0-4.3) 11/08/18 07:48 Baso % (Auto) 0.2 % (0.0-1.8) 11/08/18 07:48 Lymph # 1.0 K/mm3 (1.2-5.4) L 11/08/18 07:48 [place] # 1.3 K/mm3 (0.0-0.8) H 11/08/18 07:48 Eos # 0.0 K/mm3 (0.0-0.4) 11/08/18 07:48 Baso # 0.0 K/mm3 (0.0-0.1) 11/08/18 07:48 Add Manual Diff Complete 11/07/18 19:40 Total Counted 100 11/07/18 19:40 Seg Neutrophils % 80.5 % (40.0-70.0) H 11/08/18 07:48 Seg Neuts % (Manual) 90.0 % (40.0-70.0) H 11/07/18 19:40 Band Neutrophils % 0 % 11/07/18 19:40 Lymphocytes % (Manual) 6.0 % (13.4-35.0) L 11/07/18 19:40 Reactive Lymphs % (Man) 0 % 11/07/18 19:40 Monocytes % (Manual) 4.0 % (0.0-7.3) 11/07/18 19:40 Eosinophils % (Manual) 0 % (0.0-4.3) 11/07/18 19:40 Basophils % (Manual) 0 % (0.0-1.8) 11/07/18 19:40 Metamyelocytes % 0 % 11/07/18 19:40 Myelocytes % 0 % 11/07/18 19:40 Promyelocytes % 0 % 11/07/18 19:40 Blast Cells % 0 % 11/07/18 19:40 Nucleated RBC % Not Reportable 11/07/18 19:40 Seg Neutrophils # 9.9 K/mm3 (1.8-7.7) H 11/08/18 07:48 Seg Neutrophils # Man 12.7 K/mm3 (1.8-7.7) H 11/07/18 19:40 Band Neutrophils # 0.0 K/mm3 11/07/18 19:40 Lymphocytes # (Manual) 0.8 K/mm3 (1.2-5.4) L 11/07/18 19:40 Abs React Lymphs (Man) 0.0 K/mm3 11/07/18 19:40 Monocytes # (Manual) 0.6 K/mm3 (0.0-0.8) 11/07/18 19:40 Eosinophils # (Manual) 0.0 K/mm3 (0.0-0.4) 11/07/18 19:40 Basophils # (Manual) 0.0 K/mm3 (0.0-0.1) 11/07/18 19:40 Metamyelocytes # 0.0 K/mm3 11/07/18 19:40 Myelocytes # 0.0 K/mm3 11/07/18 19:40 Promyelocytes # 0.0 K/mm3 11/07/18 19:40 Blast Cells # 0.0 K/mm3 11/07/18 19:40 WBC Morphology Not Reportable 11/07/18 19:40 Hypersegmented Neuts Not Reportable 11/07/18 19:40 Hyposegmented Neuts Not Reportable 11/07/18 19:40 Hypogranular Neuts Not Reportable 11/07/18 19:40 Smudge Cells Not Reportable 11/07/18 19:40 Toxic Granulation Not Reportable 11/07/18 19:40 Toxic Vacuolation Not Reportable 11/07/18 19:40 Dohle Bodies Not Reportable 11/07/18 19:40 Pelger-Huet Anomaly Not Reportable 11/07/18 19:40 Geoff Rods Not Reportable 11/07/18 19:40 Platelet Estimate Consistent w auto 11/07/18 19:40 Clumped Platelets Not Reportable 11/07/18 19:40 Plt Clumps, EDTA Not Reportable 11/07/18 19:40 Large Platelets Not Reportable 11/07/18 19:40 Giant Platelets Not Reportable 11/07/18 19:40 Platelet Satelliting Not Reportable 11/07/18 19:40 Plt Morphology Comment Not Reportable 11/07/18 19:40 RBC Morphology Not Reportable 11/07/18 19:40 Dimorphic RBCs Not Reportable 11/07/18 19:40 Polychromasia Not Reportable 11/07/18 19:40 Hypochromasia Not Reportable 11/07/18 19:40 Poikilocytosis Not Reportable 11/07/18 19:40 Anisocytosis Not Reportable 11/07/18 19:40 Microcytosis 1+ 11/07/18 19:40 Macrocytosis Not Reportable 11/07/18 19:40 Spherocytes Not Reportable 11/07/18 19:40 Pappenheimer Bodies Not Reportable 11/07/18 19:40 Sickle Cells Not Reportable 11/07/18 19:40 Target Cells Few 11/07/18 19:40 Tear Drop Cells Not Reportable 11/07/18 19:40 Ovalocytes Not Reportable 11/07/18 19:40 Helmet Cells Not Reportable 11/07/18 19:40 Mcdowell-Wilkinson Bodies Not Reportable 11/07/18 19:40 [place] Rings Not Reportable 11/07/18 19:40 Liang Cells Not Reportable 11/07/18 19:40 Bite Cells Not Reportable 11/07/18 19:40 Crenated Cell Not Reportable 11/07/18 19:40 Elliptocytes 1+ 11/07/18 19:40 Acanthocytes (Spur) Not Reportable 11/07/18 19:40 Rouleaux Not Reportable 11/07/18 19:40 Hemoglobin C Crystals Not Reportable 11/07/18 19:40 Schistocytes Not Reportable 11/07/18 19:40 Malaria parasites Not Reportable 11/07/18 19:40 Teofilo Bodies Not Reportable 11/07/18 19:40 Hem Pathologist Commnt No 11/07/18 19:40 PT 14.8 Sec. (12.2-14.9) 11/07/18 19:40 INR 1.12 (0.87-1.13) 11/07/18 19:40 APTT 44.8 Sec. (24.2-36.6) H 11/07/18 19:40 Sodium 133 mmol/L (137-145) L D 11/08/18 06:40 Potassium 3.6 mmol/L (3.6-5.0) 11/08/18 06:40 Chloride 92.2 mmol/L (98-107) L 11/08/18 06:40 Carbon Dioxide 23 mmol/L (22-30) 11/08/18 06:40 Anion Gap 21 mmol/L 11/08/18 06:40 BUN 9 mg/dL (7-17) 11/08/18 06:40 Creatinine 0.5 mg/dL (0.7-1.2) L 11/08/18 06:40 Estimated GFR > 60 ml/min 11/08/18 06:40 BUN/Creatinine Ratio 18 % 11/08/18 06:40 Glucose 37 mg/dL (65-100) L* 11/08/18 06:40 POC Glucose 71 (70-105) 11/08/18 10:24 Lactic Acid 1.80 mmol/L (0.7-2.0) 11/08/18 00:41 Calcium 8.3 mg/dL (8.4-10.2) L 11/08/18 06:40 Total Bilirubin 0.30 mg/dL (0.1-1.2) 11/07/18 19:40 Direct Bilirubin < 0.2 mg/dL (0-0.2) 11/07/18 19:40 Indirect Bilirubin 0.1 mg/dL 11/07/18 19:40 AST 28 units/L (5-40) 11/07/18 19:40 ALT 23 units/L (7-56) 11/07/18 19:40 Alkaline Phosphatase 135 units/L (35-129) H 11/07/18 19:40 Ammonia 32.0 umol/L (25-60) 11/07/18 19:30 Total Creatine Kinase 140 units/L (30-135) H 11/08/18 06:40 CK-MB (CK-2) 7.3 ng/mL (0.0-4.0) H 11/08/18 06:40 CK-MB (CK-2) Rel Index 5.2 (0-4) H 11/08/18 06:40 Troponin T < 0.010 ng/mL (0.00-0.029) 11/08/18 06:40 Total Protein 6.0 g/dL (6.3-8.2) L 11/07/18 19:40 Albumin 4.0 g/dL (3.9-5) 11/07/18 19:40 Albumin/Globulin Ratio 2.0 % 11/07/18 19:40 Urine Color Straw (Yellow) 11/07/18 20:30 Urine Turbidity Clear (Clear) 11/07/18 20:30 Urine pH 8.0 (5.0-7.0) H 11/07/18 20:30 Ur Specific [place] 1.006 (1.003-1.030) 11/07/18 20:30 Urine Protein 100 mg/dl mg/dL (Negative) 11/07/18 20:30 Urine Glucose (UA) 150 mg/dL (Negative) 11/07/18 20:30 Urine Ketones Neg mg/dL (Negative) 11/07/18 20:30 Urine Blood Mod (Negative) 11/07/18 20:30 Urine Nitrite Neg (Negative) 11/07/18 20:30 Urine Bilirubin Neg (Negative) 11/07/18 20:30 Urine Urobilinogen < 2.0 mg/dL (<2.0) 11/07/18 20:30 Ur Leukocyte Esterase Neg (Negative) 11/07/18 20:30 Urine WBC (Auto) 1.0 /HPF (0.0-6.0) 11/07/18 20:30 Urine RBC (Auto) 112.0 /HPF (0.0-6.0) 11/07/18 20:30 - Imaging and Cardiology Chest x-ray: image reviewed (plerural effusion with rib fracture- left 3-6)
[2018-11-08] MEDS: ROCEPHIN/NS 1 GM/50 ML 1 GM/50 ML BAG IV SCH (11:20)
[2018-11-08] MEDS: ZITHROMAX 500 MG in NACL 0.9% 250ML 250 ML IV SCH (12:14)
--- NOTE | 2018-11-08 13:04 | Consultation ---
History of Present Illness - [facility] Consult date: 11/08/18 Consult reason: fracture History of present illness: 83 y/o female who fell at home recently and c/o'd left sided chestwall pain, CT scan done in the ED showed some evidence of nondisplaced right femoral neck frac ture. According to the patient and her daughters she's never c/o right sided hip pain able to stand and place weight onto both LE's after falling.... Past History Past Medical History: atrial fib, diabetes, hypertension, hyperlipidemia Medications and Allergies Allergies Allergy/AdvReac Type Severity Reaction Status Date / Time codeine Allergy Unknown Verified 03/05/15 19:35 Home Medications Medication Instructions Recorded Confirmed Last Taken Type Atorvastatin Calcium 40 mg PO DAILY 11/07/18 11/07/18 Unknown History Clarithromycin 125 mg PO BID 11/07/18 11/07/18 Unknown History Ergocalciferol (Vitamin D2) 1.25 mg PO 1XW 11/07/18 11/07/18 Unknown History [Ergocal] Levemir (Nf) 40 1000units SQ DAILY 11/07/18 11/07/18 Unknown History Liraglutide [Victoza 2-Angel] 1.8 unit SQ DAILY 11/07/18 11/07/18 Unknown History Magnesium Oxide [Magnesium] 400 mg PO BID 11/07/18 11/07/18 Unknown History Metoprolol [Lopressor TAB] 50 mg PO DAILY 11/07/18 11/07/18 Unknown History Omeprazole 20 mg PO DAILY 11/07/18 11/07/18 Unknown History Pradaxa 75 mg PO DAILY 11/07/18 11/07/18 Unknown History hydroCHLOROthiazide 12.5 mg PO DAILY 11/07/18 11/07/18 Unknown History [Hydrochlorothiazide] metFORMIN [Glucophage] 1,000 mg PO BID 11/07/18 11/07/18 Unknown History Active Meds: Active Medications Acetaminophen (Tylenol) 650 mg PO Q4H PRN PRN Reason: Pain MILD(1-3)/Fever >100.5/THOMSON Atorvastatin Calcium (Lipitor) 40 mg PO DAILY EVONNE Last Admin: 11/08/18 11:20 Dose: 40 mg Documented by: Dextrose (D50w (25gm) Syringe) 50 ml IV PRN PRN PRN Reason: Hypoglycemia Last Admin: 11/08/18 07:44 Dose: 50 ml Documented by: Hydralazine HCl (Apresoline) 5 mg IV Q6H PRN PRN Reason: Hypertension Azithromycin 500 mg/ Sodium (Chloride) 250 mls @ 250 mls/hr IV Q24HR EVONNE Last Admin: 11/08/18 12:14 Dose: 250 mls/hr Documented by: Ceftriaxone Sodium (Rocephin/Ns 1 Gm/50 Ml) 1 gm in 50 mls @ 100 mls/hr IV Q24HR EVONNE; Protocol Last Admin: 11/08/18 11:20 Dose: 100 mls/hr Documented by: Dextrose/Sodium Chloride (D5/0.45ns) 1,000 mls @ 50 mls/hr IV DIRECT EVONNE Last Admin: 11/08/18 01:45 Dose: 50 mls/hr Documented by: Dextrose (D10w) 1,000 mls @ 75 mls/hr IV DIRECT EVONNE Last Admin: 11/08/18 07:05 Dose: 75 mls/hr Documented by: Lisinopril (Zestril) 10 mg PO QDAY EVONNE Metoprolol Succinate (Toprol Xl) 25 mg PO QDAY [facility] Miscellaneous Medication (Pradaxa) 75 mg PO DAILY VEONNE Ondansetron HCl (Zofran) 4 mg IV Q8H PRN PRN Reason: Nausea And Vomiting Sodium Chloride (Sodium Chloride Flush Syringe 10 Ml) 10 ml IV BID EVONNE Sodium Chloride (Sodium Chloride Flush Syringe 10 Ml) 10 ml IV PRN PRN PRN Reason: LINE FLUSH Physical Examination - Physical exam Narrative exam: Alert and oriented x 3 on PE - good passive ROM at both hips, no tenderness noted Eyes: PERRL ENT: Positive: clear oral mucosa Respiratory effort: normal Respiratory: bilateral: CTA Rhythm: regular Heart Sounds: Positive: S1 & S2 General gastrointestinal: Positive: soft, non-tender, non-distended, normal bowel sounds Integumentary: clear, warm, dry Neurologic: Positive: CNII-XII intact, moves all extremities, gait normal. Ne gative: focal deficits Assessment and Plan assessment - questionable right hip fracture based on CT scan findings recommend - plain xrays pelvis and right hip
--- NOTE | 2018-11-08 13:31 | XRay Report ---
AP PELVIS: HISTORY: Pelvic pain. Compared to the CT abdomen and pelvis performed yesterday. There is mild osteopenia. Chronic, healed fractures of the right superior and inferior pelvic rami is identified. No evidence for acute fracture or diastasis. The bilateral hips are anatomic. IMPRESSION: Osteopenia. Chronic right superior and inferior pelvic rami fractures. No acute injury is detected.
[2018-11-08] MEDS: SODIUM CHLORIDE FLUSH SYRINGE 10 ML IV SCH ×2 (18:48→23:39)
[2018-11-08] MEDS: TOPROL XL PO SCH (19:11)
[2018-11-08] MEDS: TYLENOL PO PRN (19:15)
[2018-11-08] MEDS: D5W 1,000 ML IV SCH (20:26)
[2018-11-08] MEDS ORDERED: PRADAXA PO SCH (22:00)
[2018-11-08] MEDS: HumaLOG SUB-Q SCH (23:25)
[2018-11-08] MEDS: PRADAXA PO SCH (23:26)
[2018-11-09] MEDS: TYLENOL PO PRN (06:53)
[2018-11-09] MEDS: HumaLOG SUB-Q SCH ×4 (08:18→21:30)
[2018-11-09] MEDS: D5W 1,000 ML IV SCH (08:19)
[2018-11-09] MEDS: TOPROL XL PO SCH (10:15)
[2018-11-09] MEDS: ROCEPHIN/NS 1 GM/50 ML 1 GM/50 ML BAG IV SCH (10:15)
[2018-11-09] MEDS: ZESTRIL PO SCH (10:16)
[2018-11-09] MEDS: PRADAXA PO SCH ×2 (10:16→21:30)
[2018-11-09] MEDS: SODIUM CHLORIDE FLUSH SYRINGE 10 ML IV SCH ×2 (10:21→21:30)
[2018-11-09] MEDS: ZITHROMAX 500 MG in NACL 0.9% 250ML 250 ML IV SCH (10:25)
[2018-11-09] MEDS ORDERED: INSULIN DETEMIR SQ SCH (11:00)
--- NOTE | 2018-11-09 11:26 | Progress Note ---
Assessment and Plan Currently stable cardiac status. Pt has no current cardiac complaints. Pt underwent echo in our office on 10/27/2018 which showed new reduction in LV function with EF 35-40%. No current clinical evidence of acute heart failure. Can consider ischemic evaluation (lexiscan MPI stress test) to r/o ischemic CMP as OP. Cont present cardiac management, including Toprol XL, lisinopril. Pradaxa resumed per primary - cont if okay per ortho. Per ortho, pt with questionable right hip fracture based on CT scan findings. xrays pelvis and right hip recommended. Nothing further to add from cardiac perspective at this time. Will follow on as needed basis. The patient has been seen in conjunction with Dr. SILVESTRE Hammonds who agrees with the assessment and plan of care. - Patient Problems (1) Hypoglycemia Current Visit: Yes Status: Acute (2) Hypothermia Current Visit: Yes Status: Acute (3) Fall Current Visit: Yes Status: Acute (4) Ribs, multiple fractures Current Visit: Yes Status: Acute (5) Pneumonia Current Visit: Yes Status: Acute (6) Chronic atrial fibrillation Current Visit: Yes Status: Chronic (7) Cardiomyopathy Current Visit: Yes Status: Chronic (8) Severe tricuspid regurgitation Current Visit: Yes Status: Chronic (9) Pulmonary HTN Current Visit: Yes Status: Chronic (10) HTN (hypertension) Current Visit: Yes Status: Chronic (11) Hyperlipidemia Current Visit: Yes Status: Chronic (12) Diabetes Current Visit: Yes Status: Chronic Subjective Date of service: 11/09/18 Principal diagnosis: hypoglycemia Interval history: pt resting in bed, c/o rib pain. Objective Last Vital Signs Temp 98.2 F 11/09/18 07:53 Pulse 97 H 11/09/18 07:53 Resp 12 11/09/18 07:53 BP 148/76 11/09/18 07:53 Pulse Ox 98 11/09/18 07:53 - Physical Examination General: No Apparent Distress HEENT: Positive: PERRL, Normocephaly, Mucus Membranes Moist Neck: Positive: neck supple, trachea midline Cardiac: Positive: irregularly irregular, S1/S2 Lungs: Positive: clear to auscultation Neuro: Positive: Grossly Intact Abdomen: Positive: Soft. Negative: Tender Skin: Negative: Rash Musculoskeletal: No Pain Extremities: Absent: edema - Imaging and Cardiology EKG: report reviewed, image reviewed Echo: report reviewed (10/27/2018 showed EF 35-40%, basal septal and apical septal wall hypokinetic, grade 3 diastolic dysfunction, LA enlarged, RA severely enlarged, severe TR, pulm HTN with RVSP 84.7mmHg, mild pericardial effusion, left pleural effusion. )
--- NOTE | 2018-11-09 12:13 | Ultrasound Report ---
ULTRASOUND RENAL BILATERAL HISTORY: Bilateral hydronephrosis. TECHNIQUE: transabdominal ultrasound with color Doppler interrogation. FINDINGS: The right kidney measures 10.0cm. Right renal cortex: 1.6cm. The left kidney measures 9.7cm. Left renal cortex: 1.3cm. Scans of the kidneys show normal renal contours. There is normal central calyceal clustering and good preservation of the cortical thickness. There is no evidence of mass or hydronephrosis. The bladder is empty and contains a [place] catheter. IMPRESSION: Unremarkable renal ultrasound. Bilateral hydronephrosis has resolved since the recent CT abdomen pelvis dated 11/07/18. Hydronephrosis was probably secondary to a markedly distended bladder on the previous CT.
[2018-11-09] MEDS ORDERED: TORADOL IV PRN (13:50)
[2018-11-09] MEDS ORDERED: SENOKOT PO PRN (14:15)
--- NOTE | 2018-11-09 14:38 | Progress Note ---
Assessment and Plan Assessment and plan: 83 -year-old white male with a history of hypertension, diabetes, A. fib comes emergency room because she was found to be confused. Her fingerstick was less than 20, she was given D50 in the emergency room to which she responded. Daughter at bedside state that she sustained a fall today at home and landed on her left side. She is had a cough, she saw her primary care physician on Wednesday, she received a steroid shot and started taking clarithromycin on Wednesday. Sepsis Community-acquired pneumonia Hip, multiple rib, T11 wedge fracture Bilateral hydronephrosis- Resolve CHF: Acute, likely diastolic Hypertension Diabetes type 2, -Hypoglycemia A. fib Plan Supportive care Hold fluid for now, given CHF Physical therapy, POSSIBLE BRACE Continue Rocephin, azithromycin, status post Zosyn Renal ultrasound shows no other hydronephrosis Resume Home diabetic meds, Slowly. Check fingersticks, hold insulin sliding-scale DVT prophylaxis/pradaxa Plan discussed with family. Anticipate Discharge to Rehab in am. History Interval history: Patient seen and examined, family at bedside. Continues to have left chest wall pain. Hospitalist Physical - Physical exam Narrative exam: VITAL SIGNS: Reviewed. GENERAL: The patient appeared chronically ill appearing. Vital signs as documented. HEAD: No signs of head trauma. EYES: Pupils are equal. Extraocular motions intact. EARS: Hearing grossly intact. MOUTH: Oropharynx is normal. NECK: No adenopathy, no JVD. CHEST: Chest with diminshed breath sounds bilaterally. No wheezes, rales, or rhonchi. Tender left chest wall CARDIAC: Regular rate and rhythm. S1 and S2, without murmurs, gallops, or rubs. VASCULAR: No Edema. Peripheral pulses normal and equal in all extremities. ABDOMEN: Soft, without detectable tenderness. No sign of distention. No rebound or guarding, and no masses palpated. Bowel Sounds normal. MUSCULOSKELETAL: Good range of motion of all major joints. Extremities without clubbing, cyanosis or edema. NEUROLOGIC EXAM: Alert and oriented x 3. No focal sensory or strength deficits. Speech normal. Follows commands. PSYCHIATRIC: Mood normal. SKIN: redness in the left upper ext - Constitutional Vitals: Temp Pulse Resp BP Pulse Ox 98.7 F 91 H 18 129/69 98 11/09/18 11:55 11/09/18 11:56 11/09/18 11:55 11/09/18 11:55 11/09/18 13:42 General appearance: Present: no acute distress Results - Labs CBC & Chem 7: 11/08/18 07:48 11/08/18 06:40 Labs: Laboratory Last Values WBC 12.3 K/mm3 (4.5-11.0) H 11/08/18 07:48 RBC 4.82 M/mm3 (3.65-5.03) 11/08/18 07:48 Hgb 9.8 gm/dl (10.1-14.3) L 11/08/18 07:48 Hct 32.0 % (30.3-42.9) 11/08/18 07:48 MCV 66 fl (79-97) L 11/08/18 07:48 MCH 20 pg (28-32) L 11/08/18 07:48 MCHC 31 % (30-34) 11/08/18 07:48 RDW 18.3 % (13.2-15.2) H 11/08/18 07:48 Plt Count 513 K/mm3 (140-440) H 11/08/18 07:48 Lymph % (Auto) 8.5 % (13.4-35.0) L 11/08/18 07:48 [place] % (Auto) 10.7 % (0.0-7.3) H 11/08/18 07:48 Eos % (Auto) 0.1 % (0.0-4.3) 11/08/18 07:48 Baso % (Auto) 0.2 % (0.0-1.8) 11/08/18 07:48 Lymph # 1.0 K/mm3 (1.2-5.4) L 11/08/18 07:48 [place] # 1.3 K/mm3 (0.0-0.8) H 11/08/18 07:48 Eos # 0.0 K/mm3 (0.0-0.4) 11/08/18 07:48 Baso # 0.0 K/mm3 (0.0-0.1) 11/08/18 07:48 Add Manual Diff Complete 11/07/18 19:40 Total Counted 100 11/07/18 19:40 Seg Neutrophils % 80.5 % (40.0-70.0) H 11/08/18 07:48 Seg Neuts % (Manual) 90.0 % (40.0-70.0) H 11/07/18 19:40 Band Neutrophils % 0 % 11/07/18 19:40 Lymphocytes % (Manual) 6.0 % (13.4-35.0) L 11/07/18 19:40 Reactive Lymphs % (Man) 0 % 11/07/18 19:40 Monocytes % (Manual) 4.0 % (0.0-7.3) 11/07/18 19:40 Eosinophils % (Manual) 0 % (0.0-4.3) 11/07/18 19:40 Basophils % (Manual) 0 % (0.0-1.8) 11/07/18 19:40 Metamyelocytes % 0 % 11/07/18 19:40 Myelocytes % 0 % 11/07/18 19:40 Promyelocytes % 0 % 11/07/18 19:40 Blast Cells % 0 % 11/07/18 19:40 Nucleated RBC % Not Reportable 11/07/18 19:40 Seg Neutrophils # 9.9 K/mm3 (1.8-7.7) H 11/08/18 07:48 Seg Neutrophils # Man 12.7 K/mm3 (1.8-7.7) H 11/07/18 19:40 Band Neutrophils # 0.0 K/mm3 11/07/18 19:40 Lymphocytes # (Manual) 0.8 K/mm3 (1.2-5.4) L 11/07/18 19:40 Abs React Lymphs (Man) 0.0 K/mm3 11/07/18 19:40 Monocytes # (Manual) 0.6 K/mm3 (0.0-0.8) 11/07/18 19:40 Eosinophils # (Manual) 0.0 K/mm3 (0.0-0.4) 11/07/18 19:40 Basophils # (Manual) 0.0 K/mm3 (0.0-0.1) 11/07/18 19:40 Metamyelocytes # 0.0 K/mm3 11/07/18 19:40 Myelocytes # 0.0 K/mm3 11/07/18 19:40 Promyelocytes # 0.0 K/mm3 11/07/18 19:40 Blast Cells # 0.0 K/mm3 11/07/18 19:40 WBC Morphology Not Reportable 11/07/18 19:40 Hypersegmented Neuts Not Reportable 11/07/18 19:40 Hyposegmented Neuts Not Reportable 11/07/18 19:40 Hypogranular Neuts Not Reportable 11/07/18 19:40 Smudge Cells Not Reportable 11/07/18 19:40 Toxic Granulation Not Reportable 11/07/18 19:40 Toxic Vacuolation Not Reportable 11/07/18 19:40 Dohle Bodies Not Reportable 11/07/18 19:40 Pelger-Huet Anomaly Not Reportable 11/07/18 19:40 Geoff Rods Not Reportable 11/07/18 19:40 Platelet Estimate Consistent w auto 11/07/18 19:40 Clumped Platelets Not Reportable 11/07/18 19:40 Plt Clumps, EDTA Not Reportable 11/07/18 19:40 Large Platelets Not Reportable 11/07/18 19:40 Giant Platelets Not Reportable 11/07/18 19:40 Platelet Satelliting Not Reportable 11/07/18 19:40 Plt Morphology Comment Not Reportable 11/07/18 19:40 RBC Morphology Not Reportable 11/07/18 19:40 Dimorphic RBCs Not Reportable 11/07/18 19:40 Polychromasia Not Reportable 11/07/18 19:40 Hypochromasia Not Reportable 11/07/18 19:40 Poikilocytosis Not Reportable 11/07/18 19:40 Anisocytosis Not Reportable 11/07/18 19:40 Microcytosis 1+ 11/07/18 19:40 Macrocytosis Not Reportable 11/07/18 19:40 Spherocytes Not Reportable 11/07/18 19:40 Pappenheimer Bodies Not Reportable 11/07/18 19:40 Sickle Cells Not Reportable 11/07/18 19:40 Target Cells Few 11/07/18 19:40 Tear Drop Cells Not Reportable 11/07/18 19:40 Ovalocytes Not Reportable 11/07/18 19:40 Helmet Cells Not Reportable 11/07/18 19:40 [place] Bodies Not Reportable 11/07/18 19:40 Julian Rings Not Reportable 11/07/18 19:40 [place] Cells Not Reportable 11/07/18 19:40 Bite Cells Not Reportable 11/07/18 19:40 Crenated Cell Not Reportable 11/07/18 19:40 Elliptocytes 1+ 11/07/18 19:40 Acanthocytes (Spur) Not Reportable 11/07/18 19:40 Rouleaux Not Reportable 11/07/18 19:40 Hemoglobin C Crystals Not Reportable 11/07/18 19:40 Schistocytes Not Reportable 11/07/18 19:40 Malaria parasites Not Reportable 11/07/18 19:40 [place] Bodies Not Reportable 11/07/18 19:40 Hem Pathologist Commnt No 11/07/18 19:40 PT 14.8 Sec. (12.2-14.9) 11/07/18 19:40 INR 1.12 (0.87-1.13) 11/07/18 19:40 APTT 44.8 Sec. (24.2-36.6) H 11/07/18 19:40 Sodium 133 mmol/L (137-145) L D 11/08/18 06:40 Potassium 3.6 mmol/L (3.6-5.0) 11/08/18 06:40 Chloride 92.2 mmol/L (98-107) L 11/08/18 06:40 Carbon Dioxide 23 mmol/L (22-30) 11/08/18 06:40 Anion Gap 21 mmol/L 11/08/18 06:40 BUN 9 mg/dL (7-17) 11/08/18 06:40 Creatinine 0.5 mg/dL (0.7-1.2) L 11/08/18 06:40 Estimated GFR > 60 ml/min 11/08/18 06:40 BUN/Creatinine Ratio 18 % 11/08/18 06:40 Glucose 37 mg/dL (65-100) L* 11/08/18 06:40 POC Glucose 118 (70-105) H 11/09/18 12:20 Lactic Acid 1.80 mmol/L (0.7-2.0) 11/08/18 00:41 Calcium 8.3 mg/dL (8.4-10.2) L 11/08/18 06:40 Total Bilirubin 0.30 mg/dL (0.1-1.2) 11/07/18 19:40 Direct Bilirubin < 0.2 mg/dL (0-0.2) 11/07/18 19:40 Indirect Bilirubin 0.1 mg/dL 11/07/18 19:40 AST 28 units/L (5-40) 11/07/18 19:40 ALT 23 units/L (7-56) 11/07/18 19:40 Alkaline Phosphatase 135 units/L (35-129) H 11/07/18 19:40 Ammonia 32.0 umol/L (25-60) 11/07/18 19:30 Total Creatine Kinase 140 units/L (30-135) H 11/08/18 06:40 CK-MB (CK-2) 7.3 ng/mL (0.0-4.0) H 11/08/18 06:40 CK-MB (CK-2) Rel Index 5.2 (0-4) H 11/08/18 06:40 Troponin T < 0.010 ng/mL (0.00-0.029) 11/08/18 06:40 Total Protein 6.0 g/dL (6.3-8.2) L 11/07/18 19:40 Albumin 4.0 g/dL (3.9-5) 11/07/18 19:40 Albumin/Globulin Ratio 2.0 % 11/07/18 19:40 Urine Color Straw (Yellow) 11/07/18 20:30 Urine Turbidity Clear (Clear) 11/07/18 20:30 Urine pH 8.0 (5.0-7.0) H 11/07/18 20:30 Ur Specific [place] 1.006 (1.003-1.030) 11/07/18 20:30 Urine Protein 100 mg/dl mg/dL (Negative) 11/07/18 20:30 Urine Glucose (UA) 150 mg/dL (Negative) 11/07/18 20:30 Urine Ketones Neg mg/dL (Negative) 11/07/18 20:30 Urine Blood Mod (Negative) 11/07/18 20:30 Urine Nitrite Neg (Negative) 11/07/18 20:30 Urine Bilirubin Neg (Negative) 11/07/18 20:30 Urine Urobilinogen < 2.0 mg/dL (<2.0) 11/07/18 20:30 Ur Leukocyte Esterase Neg (Negative) 11/07/18 20:30 Urine WBC (Auto) 1.0 /HPF (0.0-6.0) 11/07/18 20:30 Urine RBC (Auto) 112.0 /HPF (0.0-6.0) 11/07/18 20:30
[2018-11-09] MEDS: METAMUCIL PO SCH (14:44)
[2018-11-09] MEDS ORDERED: D5NS 1,000 ML IV SCH (15:00)
[2018-11-09] MEDS ORDERED: LANTUS SUB-Q SCH (22:00)
[2018-11-10] MEDS ORDERED: LASIX IV ONE (08:00)
[2018-11-10] MEDS ORDERED: XOPENEX IH ONE (08:00)
[2018-11-10 08:35] VITALS: BP 143/73
[2018-11-10] MEDS: HumaLOG SUB-Q SCH (08:55)
--- NOTE | 2018-11-10 09:53 | Discharge Summary ---
Providers - Providers Date of Admission: 11/07/18 23:00 Attending physician: GUNNER COBIAN MD 11/07/18 22:30 Consult to Physician [CONS] Stat Comment: aware Consulting Provider: FARNAZ POLLARD Physician Instructions: Reason For Exam: left femoral neck fracture 11/07/18 22:44 Consult to Physician [CONS] Stat Comment: Consulting Provider: CAMPOS MALDONADO Physician Instructions: Reason For Exam: bilateral hydronephrosis 11/08/18 11:03 Physical Therapy Evaluation and Treat [CONS] Routine Comment: Reason For Exam: evaluation for SNF 11/08/18 19:49 Consult to Case Management [CONS] Routine Services Needed at Discharge: Home Health Services [employer] Notified:: yes Additional Physician Instructions: Primary care physician: DEMARCUS ESTRADA Hospitalization Reason for admission: SEPSIS Condition: Stable Hospital course: 83 -year-old white male with a history of hypertension, diabetes, A. fib comes emergency room because she was found to be confused. Her fingerstick was less than 20, she was given D50 in the emergency room to which she responded. Daughter at bedside state that she sustained a fall today at home and landed on her left side. She is had a cough, she saw her primary care physician on Wednesday, she received a steroid shot and started taking clarithromycin on Wednesday. Patient was seen by Orthopedic surgeon and imaging studies shows old fractures and also acute Rib fractures with conservative management recommended. We started antibiotics for pneumonia and recheck of renal ultrasound was negative for hydronephrosis. Patient is doing well but needs SNF and was discharge to the same. Medication adjustment with insulin was done to prevent further hypoglycemia Discharge Diagnosis. Sepsis Community-acquired pneumonia Hip, multiple rib, T11 wedge fracture Bilateral hydronephrosis CHF- Acute, likely diastolic Hypertension Diabetes type 2, -Hypoglycemia A. fib Disposition: DC/[place]-03 SNF W [facility] CERT Time spent for discharge: 35 MINS Core Measure Documentation - Palliative Care Palliative Care/ Comfort Measures: Not Applicable - Core Measures Any of the following diagnoses?: none Exam - Physical Exam Narrative exam: VITAL SIGNS: Reviewed. GENERAL: The patient appeared chronically ill appearing. Vital signs as documented. HEAD: No signs of head trauma. EYES: Pupils are equal. Extraocular motions intact. EARS: Hearing grossly intact. MOUTH: Oropharynx is normal. NECK: No adenopathy, no JVD. CHEST: Chest with diminished breath sounds bilaterally. No wheezes, rales, or rhonchi. Tender left chest wall CARDIAC: Regular rate and rhythm. S1 and S2, without murmurs, gallops, or rubs. VASCULAR: No Edema. Peripheral pulses normal and equal in all extremities. ABDOMEN: Soft, without detectable tenderness. No sign of distention. No rebound or guarding, and no masses palpated. Bowel Sounds normal. MUSCULOSKELETAL: Good range of motion of all major joints. Extremities without clubbing, cyanosis or edema. NEUROLOGIC EXAM: Alert and oriented x 3. No focal sensory or strength deficits. Speech normal. Follows commands. PSYCHIATRIC: Mood normal. SKIN: redness in the left upper ext - Constitutional Vitals: Temp Pulse Resp BP Pulse Ox 97.9 F 78 18 143/73 92 11/10/18 07:00 11/10/18 08:28 11/10/18 08:10 11/10/18 07:00 11/10/18 09:01 Plan Activity: advance as tolerated, fall precautions Diet: diabetic Special Instructions: record daily weights, record daily BP diary, record blood sugar diary Follow up with: DEMARCUS ESTRADA MD [Primary Care Provider] - 3-5 Days FARNAZ POLLARD MD [Staff Physician] - 7 Days Prescriptions: ALBUTEROL NEB's [Proventil 0.083% NEBS] 2.5 mg IH TID PRN #90 neb PRN Reason: Wheezing Azithromycin [Zithromax TAB] 500 mg PO QDAY #3 tablet Levemir (Nf) 10 units SQ DAILY 30 Days Sennosides Tab [Senokot] 8.6 mg PO Q12H PRN #30 tablet PRN Reason: Laxative Effect traMADol [Ultram 50 MG tab] 50 mg PO Q6HR PRN #20 tablet PRN Reason: Pain
[2018-11-10] MEDS: ROCEPHIN/NS 1 GM/50 ML 1 GM/50 ML BAG IV SCH (10:03)
[2018-11-10] MEDS: ZITHROMAX 500 MG in NACL 0.9% 250ML 250 ML IV SCH (10:03)
[2018-11-10] MEDS: METAMUCIL PO SCH (10:09)
[2018-11-10] MEDS: ZESTRIL PO SCH (10:09)
[2018-11-10] MEDS: TOPROL XL PO SCH (10:09)
[2018-11-10] MEDS: PRADAXA PO SCH (10:09)
[2018-11-10] MEDS: SODIUM CHLORIDE FLUSH SYRINGE 10 ML IV SCH (10:10)
[2018-11-10] MEDS ORDERED: LANTUS SUB-Q SCH (22:00)
[2018-11-11] MEDS ORDERED: ZITHROMAX PO SCH (10:00)
== END 2018-11-10 13:10 | DRG 871 ==
LOC: ED 19:10 → 3B-SURG 23:00
PROVIDERS: ADMIT Internal Medicine; ATTEND Internal Medicine
PROC: 4A033R1 Measurement of Arterial Saturation, Peripheral, Percutaneous Approach (ICD-10-PCS; principal; 2018-11-08)
DX: A41.9 Sepsis, unspecified organism (principal); S72.002A Fracture of unspecified part of neck of left femur, initial encounter for closed fracture; J18.9 Pneumonia, unspecified organism; I50.31 Acute diastolic (congestive) heart failure; S22.080A Wedge compression fracture of T11-T12 vertebra, initial encounter for closed fracture; S22.49XA Multiple fractures of ribs, unspecified side, initial encounter for closed fracture; I42.9 Cardiomyopathy, unspecified; N13.30 Unspecified hydronephrosis; I11.0 Hypertensive heart disease with heart failure; I48.2 Chronic atrial fibrillation; I27.20 Pulmonary hypertension, unspecified; E78.5 Hyperlipidemia, unspecified; E11.649 Type 2 diabetes mellitus with hypoglycemia without coma; Z96.652 Presence of left artificial knee joint; R68.0 Hypothermia, not associated with low environmental temperature; W18.39XA Other fall on same level, initial encounter; Z79.899 Other long term (current) drug therapy; Z88.5 Allergy status to narcotic agent; Z82.49 Family history of ischemic heart disease and other diseases of the circulatory system; Y93.89 Activity, other specified; Y92.89 Other specified places as the place of occurrence of the external cause; Y99.8 Other external cause status
CPT/HCPCS: 36415; 70450; 71045; 71250; 72170; 74176; 76770; 80048; 80076; 81001; 82140; 82550; 82553; 82947; 82962; 84484; 85007; 85025; 85610; 85730; 87040; 93005; 93010; 94640; 94760; 96365; 96375; G0378; A9270-GY; J0360; J0456; J0696; J1610; J1815; J1885; J1940; J2543; J3370; J7030; J7042; J7050; J7070